=== PATIENT | male | born 1975 | race Caucasian/White ===

== ENCOUNTER → 2016-06-26 | Outpatient (CLI) | payer OTHER ==
[~2016-06-26] MED LIST: LORA-741 PO; MELO7.5T5 PO; VENL75CA73 PO
[2016-06-26 10:09] LABS: BASO % 0.2 %; BASO ABS # 0.02 K/uL (0-0.2); COMPLETE YES; EOS % 4.1 %; HEMATOCRIT 43.7 % (42-52); IG% 0.4 %; LYMPH % 23.1 %; LYMPH ABS # 2.41 K/uL (1.2-3.4); MEAN CELL VOLUME 85.2 fL (80-100); MEAN CORPUSCULAR HEMOGLOBIN 28.5 pg (25-34); MEAN CORPUSCULAR HGB CONC 33.4 g/dl (32-36); MEAN PLATELET VOLUME 9.2 fL (7.4-10.4); MONO % 8.1 %; NEUT % 64.1 %; PLATELET COUNT 346 K/uL (130-400); RED BLOOD COUNT 5.13 M/uL (4.7-6.1); WHITE BLOOD COUNT 10.44 K/uL (4.8-10.8)
[2016-06-26 12:49] LABS: ALT/SGPT 43 U/L (12-78); AST/SGOT 23 U/L (15-37); BLOOD UREA NITROGEN 13 mg/dl (7-18); BUN/CREATININE RATIO 14.2 (10-20); CARBON DIOXIDE 27 mmol/L (21-32); CHLORIDE 103 mmol/L (98-107); CHOLESTEROL 212 mg/dl (0-200); CREATININE 0.89 mg/dl (0.60-1.40); GLUCOSE 143 mg/dl (70-99); POTASSIUM 4.1 mmol/L (3.5-5.1); SODIUM 138 mmol/L (136-145); TRIGLYCERIDES 121 mg/dl (0-150); VERY LOW DENSITY LIPOPROT CALC 24 mg/dl
[2016-06-26 12:53] LABS: CALCIUM 9.4 mg/dl (8.5-10.1)
[2016-06-26 12:59] LABS: ALB/GLOB RATIO 0.9 (0.9-2); ALKALINE PHOSPHATASE 99 U/L (45-117); CHOLESTEROL/HDL RATIO 4.3; HDL CHOLESTEROL 49 mg/dl; LDL CHOLESTEROL CALCULATED 139 mg/dl
== END | disposition home or self-care (01) ==
LOC: C.LAB1850 09:00
PROVIDERS: ATTEND Internal Medicine Geriatric Medicine
DX: F41.8 Other specified anxiety disorders (principal); M19.90 Unspecified osteoarthritis, unspecified site; K76.0 Fatty (change of) liver, not elsewhere classified; M45.9 Ankylosing spondylitis of unspecified sites in spine; K62.5 Hemorrhage of anus and rectum; K51.90 Ulcerative colitis, unspecified, without complications

== ENCOUNTER → 2017-03-14 | Outpatient (CLI) | payer OTHER ==
--- NOTE | 2017-03-16 14:30 | POLYSOMNOGRAPH REPORT ---
CLINICAL DATA: A 41-year-old male with BMI of 39.[address] Rajeev Ames with chronic sleep disturbance for at least 10-15 years. He awakens with fatigue and daytime somnolence. He snores loudly and awakens due to choking. On the evening of 03/14/2017, a home sleep apnea test was performed using a [employer]Keeper type 3 monitor. RECORDING RESULTS: Total recording time was 10 hours. The patient's monitoring time and estimated sleep time was 7.3 hours. RESPIRATORY DATA: Severe sleep apnea was documented. The OLIVE was 53.4. There were 280 obstructive and 2 mixed apneic episodes. There were 108 hypopneic episodes. The longest respiratory event was 60 seconds. OXIMETRY DATA: Nocturnal hypoxemia was seen. Oxygen cain was 64%. Mean saturation was 88%. Time below 89% was 172 minutes. HEART RATE DATA: Heart rates ranged from 68-84 beats per minute. SNORING DATA: Loud snoring events recorded throughout the night. IMPRESSION: Very severe sleep apnea/hypopnea with an OLIVE of 53.4 with severe nocturnal hypoxemia. RECOMMENDATIONS: The patient would benefit from a repeat sleep study with CPAP, use of auto CPAP, or sleep medicine consultation. Clinical correlation is needed. [facility]
== END | disposition home or self-care (01) ==
LOC: C.NEUR 08:14
PROVIDERS: ATTEND Internal Medicine Geriatric Medicine
DX: G47.30 Sleep apnea, unspecified (principal)

== ENCOUNTER → 2017-04-19 | Outpatient (CLI) | payer OTHER ==
[2017-04-19 09:31] LABS: BLOOD UREA NITROGEN 16 mg/dl (7-18); CALCIUM 9.1 mg/dl (8.5-10.1); CARBON DIOXIDE 27 mmol/L (21-32); CREATININE 0.89 mg/dl (0.60-1.40); GLUCOSE 140 mg/dl (70-99); POTASSIUM 4.2 mmol/L (3.5-5.1); SODIUM 135 mmol/L (136-145)
== END | disposition home or self-care (01) ==
LOC: C.LAB1850 08:07
PROVIDERS: ATTEND Internal Medicine Geriatric Medicine
DX: I10 Essential (primary) hypertension (principal)

== ENCOUNTER → 2017-05-22 | Outpatient (CLI) | payer OTHER ==
--- NOTE | 2017-05-25 16:26 | POLYSOMNOGRAPH REPORT ---
CLINICAL DATA: A 42-year-old male with BMI of 39.[address] Rajeev Ames for CPAP titration study. He had a home sleep apnea test on February, which showed severe sleep apnea with an OLIVE of 53.4. SLEEP ARCHITECTURE: Total sleep period was 448.5 minutes. Total sleep time was 350.5 minutes divided between 327 minutes of non-REM sleep and 23.5 minutes of REM sleep. Sleep onset latency was 17 minutes. REM latency was delayed at 294 minutes. Sleep efficiency was 75%. Wake after sleep onset was 98 minutes. Sleep consisted of stage N1 11%, stage N2 47%, stage N3 35%, and REM 7%. AROUSAL DATA: Forty five arousals were recorded for an index of 8 per hour. PERIODIC LIMB MOVEMENT DATA: Eighty five limb movements during sleep were noted for an index of 14.6 per hour with arousal index of 4.5 per hour. RESPIRATORY DATA: The AHI was 11.8. There were 5 central and 1 obstructive apneic episodes. The longest duration of apnea was 18.3 seconds. There were 63 hypopneic episodes with a mean duration of 21 seconds. OXIMETRY DATA: Nocturnal hypoxemia was seen. Oxygen cain was 82% during non-REM sleep and mean saturation was 93%. Time below 88% was 13 minutes. ECHOCARDIOGRAM: Heart rate ranged from 71-98 beats per minute. No arrhythmias were noted. 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 CPAP was started using a medium Mariano and Paykel Simplus mask. The patient was titrated incrementally up to his final pressure setting of CPAP 10 cm water pressure, C-Flex setting #2. At this final pressure setting, the patient slept for 109 minutes with an AHI of 1.6. IMPRESSION: Severe sleep apnea/hypopnea corrected with CPAP 10 cm water pressure, C-flex #2, medium Mariano and Paykel Simplus mask. RECOMMENDATIONS: The patient should be started on the above noted treatment regimen and seen back in followup within 90 days to document efficacy and compliance. [facility]
== END | disposition home or self-care (01) ==
LOC: C.NEUR 20:00
PROVIDERS: ATTEND Internal Medicine Geriatric Medicine
DX: G47.33 Obstructive sleep apnea (adult) (pediatric) (principal)

== ENCOUNTER → 2017-07-12 | Outpatient (CLI) | payer OTHER ==
[~2017-07-12] VITALS: Ht 181.6 cm; Wt 130.4 kg
[2017-07-12 09:37] VITALS: BP 117/75; PULSE 99; Ht 181.6 cm; Wt 130.4 kg
== END | disposition home or self-care (01) ==
LOC: C.NEUR 09:12
PROVIDERS: ATTEND Internal Medicine Pulmonary Disease
DX: G47.33 Obstructive sleep apnea (adult) (pediatric) (principal)

== ENCOUNTER 2020-01-02 21:52 | Observation (INO) ==
[2020-01-02] MEDS ORDERED: ONDANSETRON INJ 2 MG/ML 2 ML VIAL IV STA (22:27)
[2020-01-02] MEDS ORDERED: SODIUM CHLORIDE 0.9% 1000ML 1,000 ML IV SCH (22:30)
--- NOTE | 2020-01-02 22:38 | Emergency Department Note ---
History of Present Illness General Chief complaint: Abdominal Pain Stated complaint: AB PAIN Time Seen by Provider: 01/02/20 22:00 History of Present Illness Maximum Pain Intensity: 0 This 44-year-old presents to the ER complaining of nausea, vomiting and abdominal pain Location: Abdomen Quality: Painful Severity: Moderate Duration: This afternoon Timing: Started this afternoon Context: Patient was concerned and came in Modifying factors: better with going the bathroom; worse with activity Patient states the pain came on strong and he vomited. He tried to go the bathroom got lightheaded and nearly passed out. Patient did have a bowel movement and feels slightly better now. He has a history of UC. Patient denies chest pain, dyspnea, fevers, flulike illness. No prior abdominal surgeries. Colonoscopy 5 years ago showed UC and diverticulosis. Home Medications Home Medications Medication Instructions Recorded Confirmed Type miscellaneous medical supply #1 ea 10/07/18 09/26/19 Rx blood sugar diagnostic #100 ea 10/21/18 09/26/19 Rx blood-glucose meter #1 ea 10/21/18 09/26/19 Rx lancets #100 ea 10/21/18 09/26/19 Rx venlafaxine 75 mg capsule,extended 225 mg PO DAILY #90 cap 06/04/19 01/02/20 Rx release 24 hr glipizide 5 mg tablet 5 mg PO DAILY #30 tab 08/14/19 01/02/20 Rx lisinopril 10 mg tablet 10 mg PO DAILY #30 tab 08/14/19 01/02/20 Rx meloxicam 7.5 mg tablet 7.5 mg PO DAILY PRN #90 tab 10/27/19 01/02/20 Rx metformin 1,000 mg tablet 1,000 mg PO BID #180 tab 11/17/19 01/02/20 Rx Allergies Allergy/AdvReac Type Severity Reaction Status Date / Time No Known Allergies Allergy Verified 01/02/20 22:33 Past Med/Surg History Medical History Ankylosing spondylitis Diabetes mellitus, type II Generalized anxiety disorder Hypertension Obstructive sleep apnea Polysomnography (03/15) with OLIVE 53.4 with nocturnal hypoxemia. 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 Feels Safe at Home: Yes Childhood Exposure to Second-Hand Smoke: Yes Dental Care, Regularly: No Physical Activity Frequency: 1-2 Times per Week Seatbelt Use: always Sunscreen Use: Yes Review of Systems A total of 10 systems reviewed and were otherwise negative Physical Exam Vital Signs Vital Signs - 24 hr 01/02/20 22:01 01/02/20 23:00 01/02/20 23:30 Temperature 36.7 C Temperature Source Oral Pulse Rate 106 H 110 H 96 H Pulse Rate from SpO2 Sensor 111 H 96 H Respiratory Rate 20 20 27 H Respiratory Effort / Characteristics Non-Labored Spontaneous Respiratory Depth Normal Blood Pressure 100/75 Blood Pressure Mean 83 Blood Pressure Position Lying Pulse Oximetry 96 96 95 Oxygen Delivery Method Room Air Sepsis Recent Fever Within 48 Hours No Sepsis New/Unexplained Change in Mental Status No Sepsis Action Taken by Nursing No Action Required 01/02/20 23:58 01/03/20 00:00 01/03/20 00:22 Temperature Temperature Source Pulse Rate 105 H 105 H Pulse Rate from SpO2 Sensor 106 H 105 H Respiratory Rate 30 H 33 H Respiratory Effort / Characteristics Respiratory Depth Blood Pressure 106/68 104/67 Blood Pressure Mean 76 82 Blood Pressure Position Pulse Oximetry 94 94 Oxygen Delivery Method Room Air Sepsis Recent Fever Within 48 Hours Sepsis New/Unexplained Change in Mental Status Sepsis Action Taken by Nursing 01/03/20 00:30 01/03/20 01:00 01/03/20 01:30 Temperature Temperature Source Pulse Rate 113 H 105 H Pulse Rate from SpO2 Sensor 113 H 113 H 105 H Respiratory Rate 35 H 22 Respiratory Effort / Characteristics Respiratory Depth Blood Pressure 108/73 98/71 L 118/70 Blood Pressure Mean 84 76 80 Blood Pressure Position Pulse Oximetry 95 94 96 Oxygen Delivery Method Sepsis Recent Fever Within 48 Hours Sepsis New/Unexplained Change in Mental Status Sepsis Action Taken by Nursing 01/03/20 02:00 Temperature Temperature Source Pulse Rate 100 H Pulse Rate from SpO2 Sensor 100 H Respiratory Rate 22 Respiratory Effort / Characteristics Respiratory Depth Blood Pressure 103/56 L Blood Pressure Mean 62 Blood Pressure Position Pulse Oximetry 95 Oxygen Delivery Method Sepsis Recent Fever Within 48 Hours Sepsis New/Unexplained Change in Mental Status Sepsis Action Taken by Nursing VITALS: Vitals are noted on the nurse's note and reviewed by myself. Vital signs stable. GENERAL: White male who appears fatigued, in no acute distress, nondiaphoretic, well-developed well-nourished. SKIN: Capillary reflex less than 2 seconds. HEENT: Normocephalic. PERRLA. EOMI. Nares patent. Mucous membranes moist. Neck is supple without nuchal rigidity. HEART: Regular rate and rhythm LUNGS: Clear to auscultation bilaterally without wheezes, rales or rhonchi. No retractions or accessory muscle use. ABDOMEN: Positive bowel sounds x 4. Normal tympanic percussion. Soft, protuberant, obese, tender to palpation left lower quadrant, without masses or organomegaly. Navarro sign negative. No guarding or rebound tenderness. No CVA tenderness MUSCULOSKELETAL: No gross musculoskeletal defects. NEURO: Patient was alert and oriented to person place and time. No focal neurological deficits. Course Administered Medications Discontinued Medications Sodium Chloride (Nss 1000ml) 1,000 mls @ 999 mls/hr IV .Q1H1M JAKE Stop: 01/02/20 23:30 Last Infusion: 01/02/20 23:35 Dose: 0 mls/hr Documented by: [id number] Admin: 01/02/20 22:34 Dose: 999 mls/hr Documented by: [id number] Piperacillin Sod/Tazobactam Sod (Zosyn) 4.5 gm in 120 mls @ 240 mls/hr IV NOW ONE Stop: 01/02/20 23:28 Last Infusion: 01/03/20 00:25 Dose: 0 mls/hr Documented by: [id number] Admin: 01/02/20 23:55 Dose: 240 mls/hr Documented by: [id number] Sodium Chloride (Nss 1000ml) 1,000 mls @ 999 mls/hr IV .Q1H1M ONE Stop: 01/03/20 01:02 Last Infusion: 01/03/20 01:34 Dose: 0 mls/hr Documented by: [id number] Admin: 01/03/20 00:15 Dose: 999 mls/hr Documented by: [id number] Sodium Chloride (Nss 1000ml) 1,000 mls @ 999 mls/hr IV .Q1H1M ONE Stop: 01/03/20 01:03 Last Infusion: 01/03/20 02:14 Dose: 0 mls/hr Documented by: [id number] Admin: 01/03/20 01:01 Dose: 999 mls/hr Documented by: [id number] Insulin Human Regular (Novolin-R Insulin Per Unit Charge) 10 units IV NOW STA Stop: 01/03/20 00:01 Last Admin: 01/03/20 00:13 Dose: 10 units Documented by: [id number] Cosigned by: [id number] Ioversol (Ioversol 100ml) 93 ml IV ONCE ONE Stop: 01/02/20 23:29 Last Admin: 01/02/20 23:29 Dose: 1 ml Documented by: [id number] Ondansetron HCl (Ondansetron Inj 2 Mg/Ml 2 Ml Vial) 4 mg IV NOW STA Stop: 01/02/20 22:28 Last Admin: 01/02/20 22:35 Dose: 4 mg Documented by: [id number] Medical Decision Making Medical Records Attestation: I reviewed the patient's medical records. Home Medications Current Medication List: was personally reviewed by me Laboratory Data Attestation: I reviewed the patient's lab results. Result diagrams: 01/02/20 21:30 01/02/20 21:30 Lab Results 01/02/20 01/02/20 01/02/20 Range/Units 21:30 21:30 23:18 WBC 32.27 H* (4.8-10.8) K/uL RBC 6.29 H (4.7-6.1) M/uL Hgb 18.3 H (14.0-18.0) g/dL Hct 55.1 H (42-52) % MCV 87.6 (80-100) fL MCH 29.1 (25-34) pg MCHC 33.2 (32-36) g/dL RDW Std Deviation 41.9 (36.4-46.3) fL RDW Coeff of Damaris 13.1 (11.5-14.5) % Plt Count 462 H (130-400) K/uL MPV 10.3 (7.4-10.4) fL Immature Gran % (Auto) 1.5 % Neut % (Auto) 86.0 % Lymph % (Auto) 7.1 % [place] % (Auto) 5.1 % Eos % (Auto) 0.1 % Baso % (Auto) 0.2 % Neut # (Auto) 27.79 H (1.4-6.5) K/uL Lymph # (Auto) 2.28 (1.2-3.4) K/uL [place] # (Auto) 1.65 H (0.11-0.59) K/uL Eos # (Auto) 0.02 (0-0.5) K/uL Baso # (Auto) 0.05 (0-0.2) K/uL Immature Gran # (Auto) 0.48 H (0.00-0.02) K/uL RBC Morphology Unremarkable VBG pH (7.36-7.41) VBG pCO2 (38-50) mmHg VBG pO2 mmHg VBG HCO3 mmol/L VBG O2 Saturation % VBG Base Excess mEq/L Sodium 133 L (136-145) mmol/L Potassium 4.7 (3.5-5.1) mmol/L Chloride 94 L (98-107) mmol/L Carbon Dioxide 22 (21-32) mmol/L Anion Gap 17.0 H (3-11) BUN 20 H (7-18) mg/dl Creatinine 1.76 H (0.6-1.4) mg/dl Est Cr Clr Drug Dosing 66.8 ml/min Est GFR ( Amer) 52.6 Est GFR (Non-Af Amer) 45.4 BUN/Creatinine Ratio 11.2 (10-20) Glucose 348 H* (70-99) mg/dl POC Glucose (70-99) mg/dl Lactate 4.7 H* (0.4-2.0) mmol/L Calcium 9.4 (8.5-10.1) mg/dl Total Bilirubin 0.4 (0.2-1) mg/dl AST 64 H (15-37) U/L ALT 138 H (12-78) U/L Alkaline Phosphatase 104 (45-117) U/L Troponin I < 0.015 (0-0.045) ng/ml Total Protein 8.5 H (6.4-8.2) gm/dl Albumin 3.9 (3.4-5.0) gm/dl Globulin 4.6 H (2.5-4.0) gm/dl Albumin/Globulin Ratio 0.9 (0.9-2) Lipase 104 (73-393) U/L Beta-Hydroxybutyric Acd (0.2-2.81) mg/dl Urine Color Urine Appearance (Clear) Urine pH (4.5-7.5) Ur Specific [place] (1.000-1.030) Urine Protein (Negative) Urine Glucose (UA) (Negative) Urine Ketones (Negative) Urine Blood (Negative) Urine Nitrite (Negative) Urine Bilirubin (Negative) Urine Urobilinogen (Negative) Ur Leukocyte Esterase (Negative) Urine WBC (Auto) (0-5) /hpf Urine RBC (Auto) (0-4) /hpf U Hyaline Cast (Auto) (0-5) /lpf U Epithel Cells (Auto) (0-5) /lpf Urine Bacteria (Auto) (Negative) Calcium Oxalate Crystal (None Prsent) Granular Casts (0) /lpf 01/02/20 01/03/20 01/03/20 Range/Units 23:18 00:11 00:12 WBC (4.8-10.8) K/uL RBC (4.7-6.1) M/uL Hgb (14.0-18.0) g/dL Hct (42-52) % MCV (80-100) fL MCH (25-34) pg MCHC (32-36) g/dL RDW Std Deviation (36.4-46.3) fL RDW Coeff of Damaris (11.5-14.5) % Plt Count (130-400) K/uL MPV (7.4-10.4) fL Immature Gran % (Auto) % Neut % (Auto) % Lymph % (Auto) % [place] % (Auto) % Eos % (Auto) % Baso % (Auto) % Neut # (Auto) (1.4-6.5) K/uL Lymph # (Auto) (1.2-3.4) K/uL [place] # (Auto) (0.11-0.59) K/uL Eos # (Auto) (0-0.5) K/uL Baso # (Auto) (0-0.2) K/uL Immature Gran # (Auto) (0.00-0.02) K/uL RBC Morphology VBG pH 7.26 L (7.36-7.41) VBG pCO2 51 H (38-50) mmHg VBG pO2 28 mmHg VBG HCO3 23 mmol/L VBG O2 Saturation < 60.0 % VBG Base Excess -5.2 mEq/L Sodium (136-145) mmol/L Potassium (3.5-5.1) mmol/L Chloride (98-107) mmol/L Carbon Dioxide (21-32) mmol/L Anion Gap (3-11) BUN (7-18) mg/dl Creatinine (0.6-1.4) mg/dl Est Cr Clr Drug Dosing ml/min Est GFR ( Amer) Est GFR (Non-Af Amer) BUN/Creatinine Ratio (10-20) Glucose (70-99) mg/dl POC Glucose 382 H* 416 H* (70-99) mg/dl Lactate (0.4-2.0) mmol/L Calcium (8.5-10.1) mg/dl Total Bilirubin (0.2-1) mg/dl AST (15-37) U/L ALT (12-78) U/L Alkaline Phosphatase (45-117) U/L Troponin I (0-0.045) ng/ml Total Protein (6.4-8.2) gm/dl Albumin (3.4-5.0) gm/dl Globulin (2.5-4.0) gm/dl Albumin/Globulin Ratio (0.9-2) Lipase (73-393) U/L Beta-Hydroxybutyric Acd (0.2-2.81) mg/dl Urine Color Urine Appearance (Clear) Urine pH (4.5-7.5) Ur Specific [place] (1.000-1.030) Urine Protein (Negative) Urine Glucose (UA) (Negative) Urine Ketones (Negative) Urine Blood (Negative) Urine Nitrite (Negative) Urine Bilirubin (Negative) Urine Urobilinogen (Negative) Ur Leukocyte Esterase (Negative) Urine WBC (Auto) (0-5) /hpf Urine RBC (Auto) (0-4) /hpf U Hyaline Cast (Auto) (0-5) /lpf U Epithel Cells (Auto) (0-5) /lpf Urine Bacteria (Auto) (Negative) Calcium Oxalate Crystal (None Prsent) Granular Casts (0) /lpf 01/03/20 01/03/20 01/03/20 Range/Units 00:15 01:20 01:30 WBC (4.8-10.8) K/uL RBC (4.7-6.1) M/uL Hgb (14.0-18.0) g/dL Hct (42-52) % MCV (80-100) fL MCH (25-34) pg MCHC (32-36) g/dL RDW Std Deviation (36.4-46.3) fL RDW Coeff of Damaris (11.5-14.5) % Plt Count (130-400) K/uL MPV (7.4-10.4) fL Immature Gran % (Auto) % Neut % (Auto) % Lymph % (Auto) % [place] % (Auto) % Eos % (Auto) % Baso % (Auto) % Neut # (Auto) (1.4-6.5) K/uL Lymph # (Auto) (1.2-3.4) K/uL [place] # (Auto) (0.11-0.59) K/uL Eos # (Auto) (0-0.5) K/uL Baso # (Auto) (0-0.2) K/uL Immature Gran # (Auto) (0.00-0.02) K/uL RBC Morphology VBG pH (7.36-7.41) VBG pCO2 (38-50) mmHg VBG pO2 mmHg VBG HCO3 mmol/L VBG O2 Saturation % VBG Base Excess mEq/L Sodium (136-145) mmol/L Potassium (3.5-5.1) mmol/L Chloride (98-107) mmol/L Carbon Dioxide (21-32) mmol/L Anion Gap (3-11) BUN (7-18) mg/dl Creatinine (0.6-1.4) mg/dl Est Cr Clr Drug Dosing ml/min Est GFR ( Amer) Est GFR (Non-Af Amer) BUN/Creatinine Ratio (10-20) Glucose (70-99) mg/dl POC Glucose 321 H* (70-99) mg/dl Lactate 4.3 H* (0.4-2.0) mmol/L Calcium (8.5-10.1) mg/dl Total Bilirubin (0.2-1) mg/dl AST (15-37) U/L ALT (12-78) U/L Alkaline Phosphatase (45-117) U/L Troponin I (0-0.045) ng/ml Total Protein (6.4-8.2) gm/dl Albumin (3.4-5.0) gm/dl Globulin (2.5-4.0) gm/dl Albumin/Globulin Ratio (0.9-2) Lipase (73-393) U/L Beta-Hydroxybutyric Acd (0.2-2.81) mg/dl Urine Color Dark Yellow Urine Appearance Cloudy A (Clear) Urine pH 5.0 (4.5-7.5) Ur Specific [place] > 1.045 H (1.000-1.030) Urine Protein 2+ H (Negative) Urine Glucose (UA) 3+ H (Negative) Urine Ketones 1+ H (Negative) Urine Blood Negative (Negative) Urine Nitrite Negative (Negative) Urine Bilirubin Negative (Negative) Urine Urobilinogen Negative (Negative) Ur Leukocyte Esterase Negative (Negative) Urine WBC (Auto) 1-5 (0-5) /hpf Urine RBC (Auto) 10-30 H (0-4) /hpf U Hyaline Cast (Auto) >30 H (0-5) /lpf U Epithel Cells (Auto) >30 H (0-5) /lpf Urine Bacteria (Auto) Negative (Negative) Calcium Oxalate Crystal Present A (None Prsent) Granular Casts 1-5 H (0) /lpf Imaging Data Attestation: I personally reviewed and interpreted this imaging study as follows: MDM Narrative Prior records/ancillary studies reviewed. Triage Nursing notes reviewed. Additional history obtained from family. The patient's history was concerning for abdominal pain. Differential diagnosis: Etiologies such as appendicitis, diverticulitis, PUD, biliary pathology, UTI, pancreatitis, obstruction, mesenteric ischemia, aortic pathology, infections, inflammatory bowel disease, renal colic, as well as others were entertained. Physical examination findings: As above. ER treatment provided: An order was placed for continuous cardiac monitoring. The monitor shows a rate of 60-1 10 with a sinus rhythm. IV fluids, Zofran, Zosyn On reassessment the patient felt better. Diagnostics interpreted by me: ECG: Ordered for weakness EKG: Normal sinus, normal normals, no acute ST-T wave changes. Impression sinus tachycardia with interpreted myself I think arrhythmia is unlikely. EKG shows normal sinus rhythm with no interval abnormalities such as QT prolongation or WPW. There are no findings to suggest Brugada syndrome. Cardiac monitoring in the emergency department reveals no tachycardic or bradycardic dysrhythmia. Hypertrophic cardiomyopathy was considered but there are no clear historical elements pointing toward this. EKG is not suggestive. The QRS voltage is not extremely large and there are no suggestive Q waves. The labs revealed leukocytosis and blood cultures and lactic were ordered Hyperglycemia with a gap and a VBG was ordered Elevated creatinine Negative troponin pH was reviewed. Lactic acid elevated. Repeat was ordered. Imaging studies: Chest x-ray with no acute consolidation, pneumothorax or free air per my interpretation CT ABDOMEN & PELVIS With Contrast: Direct comparison is made to a prior study of January 06, 2015. The liver is low in attenuation suggesting fatty infiltration. Spleen pancreas and gallbladder appear normal. Stomach appears normal. Segments of distal small bowel appear mildly thickened but without pneumatosis or obstruction. There is colonic diverticulosis without diverticulitis. The appendix appears normal. Adrenals kidneys ureters and bladder appear normal. Prostate appears normal. Vascular structures appear normal. There is no free peritoneal air. There is free peritoneal fluid with collections adjacent to the liver spleen and in the deep pelvis. There is haziness in the central small bowel mesenteric fat. Impression: Small bowel thickening and peroneal fluid with haziness in the small bowel mesenteric fat likely related to enteritis. Radiologist: Bart Casillas MD Consultation: A consultation was placed with Dr. Chacon. The case was discussed and diagnostics were reviewed. The patient was evaluated in the ER for further treatment. Exam and history seem consistent with DKA. Patient was hydrated as above. He was given insulin. CAT scan was reviewed. He was feeling better. Medicine was consulted. He will be evaluated for admission. By the evaluation outlined above emergent etiologies such as appendicitis, diverticulitis, PUD, biliary pathology, pancreatitis, obstruction, mesenteric ischemia, aortic pathology, renal colic, as well as others were deemed relatively unlikely. The pt informed about the findings as listed above. All questions were answered and pleased with the treatment. The chart was completed utilizing Dragon Speech voice recognition software. Grammatical errors, random word insertions, pronoun errors, and incomplete sentences are an occassional consequence of this system due to software limitations, ambient noise, and hardware issues. Any formal questions or concerns about the content, text, or information contained within the body of this dictation should be directly addressed to the physician assistant professor of business for clarification. Impression & Plan DKA (diabetic ketoacidoses), Abdominal pain Discharge Plan Visit Data Chief Complaint: Abdominal Pain Stated Complaint: AB PAIN ED Provider: Vasquez Rosario ED Midlevel Provider: Yamel Ospina Discharge Problem: DKA (diabetic ketoacidoses), Abdominal pain Patient Disposition: Admitted As Inpatient Condition: Fair Forms Stand Alone Forms: Moni Prescriptions Prescriptions: No Action (DME) CPAP Supplies Misc See Dose Instructions .ROUTE .MEDSUPPLY Qty: 1 RF: 0 (DME) Accu-Chek Irma Plus test strp strip See Dose Instructions .ROUTE .MEDSUPPLY Qty: 100 RF: 0 (DME) blood-glucose meter [Accu-Chek Irma Plus Meter] misc See Dose Instructions .ROUTE .MEDSUPPLY Qty: 1 RF: 0 (DME) lancets [Accu-Chek Fastclix Lancet Drum] misc See Dose Instructions .ROUTE .MEDSUPPLY Qty: 100 RF: 0 venlafaxine 75 mg capsule,extended release 24hr 225 mg PO DAILY Qty: 90 RF: 0 glipizide 5 mg tablet 5 mg PO DAILY Qty: 30 RF: 5 lisinopril 10 mg tablet 10 mg PO DAILY Qty: 30 RF: 5 meloxicam 7.5 mg tablet 7.5 mg PO DAILY PRN (Reason: pain) Qty: 90 RF: 1 metformin 1,000 mg tablet 1,000 mg PO BID Qty: 180 RF: 1 Referrals Referrals: Portia Mosley MD [Primary Care Provider] - Discharge Problem: DKA (diabetic ketoacidoses) Qualifiers: Diabetes mellitus type: type 2 Diabetes mellitus complication detail: without coma Qualified Code(s): E11.10 - Type 2 diabetes mellitus with ketoacidosis without coma
[2020-01-02 22:42] LABS: Hematocrit (blood only) 55.1 % (42-52); Hemoglobin 18.3 g/dL (14.0-18.0); Mean Corpuscular Hemoglobin 29.1 pg (25-34); Mean Corpuscular Hgb Conc 33.2 g/dL (32-36); Mean Corpuscular Volume 87.6 fL (80-100); Mean Platelet Volume 10.3 fL (7.4-10.4); Platelet Count 462 K/uL (130-400); RDW Coefficient of Variation 13.1 % (11.5-14.5); RDW Standard Deviation 41.9 fL (36.4-46.3); Red Blood Count 6.29 M/uL (4.7-6.1); White Blood Count 32.27 K/uL (4.8-10.8)
[2020-01-02 22:51] LABS: Alanine Aminotransferase 138 U/L (12-78); Albumin Globulin Ratio 0.9 (0.9-2); Albumin Level 3.9 gm/dl (3.4-5.0); Alkaline Phosphatase 104 U/L (45-117); Aspartate Aminotransferase 64 U/L (15-37); BUN Creatinine Ratio 11.2 (10-20); Bilirubin,Total 0.4 mg/dl (0.2-1); Blood Urea Nitrogen 20 mg/dl (7-18); Calcium 9.4 mg/dl (8.5-10.1); Carbon Dioxide 22 mmol/L (21-32); Chloride 94 mmol/L (98-107); Creatinine Clr Calc Pharmacy 66.8 ml/min; Est GFR (African American) 52.6; Est GFR (Non-African American) 45.4; Globulin 4.6 gm/dl (2.5-4.0); Glucose 348 mg/dl (70-99); Lipase 104 U/L (73-393); Potassium 4.7 mmol/L (3.5-5.1); Sodium 133 mmol/L (136-145); Total Protein 8.5 gm/dl (6.4-8.2); Troponin I < 0.015 ng/ml (0-0.045)
[2020-01-02] MEDS ORDERED: PIPERACILLIN/TAZOBACTAM 4.5 GM/120 ML BAG IV ONE (22:59)
[2020-01-02] MEDS ORDERED: PIPERACILL/TAZOBAC CONSULT ACTIVE PRN (22:59)
[2020-01-02] MEDS ORDERED: IOVERSOL 100ml IV ONE (23:28)
[2020-01-02 23:37] LABS: Base Excess VBG -5.2 mEq/L; HCO3 VBG 23 mmol/L; PCO2 VBG 51 mmHg (38-50); PO2 VBG 28 mmHg; pH VBG 7.26 (7.36-7.41)
[2020-01-02 23:48] LABS: Basophils # (auto) 0.05 K/uL (0-0.2); Basophils % (auto) 0.2 %; Eosinophils # (auto) 0.02 K/uL (0-0.5); Eosinophils % (auto) 0.1 %; Immature Granulocytes # (auto) 0.48 K/uL (0.00-0.02); Immature Granulocytes % (auto) 1.5 %; Lymphocytes # (auto) 2.28 K/uL (1.2-3.4); Lymphocytes % (auto) 7.1 %; Monocytes # (auto) 1.65 K/uL (0.11-0.59); Monocytes % (auto) 5.1 %; Neutrophils # (auto) 27.79 K/uL (1.4-6.5); RBC Morphology Unremarkable
[2020-01-02 23:48] LABS: Oxygen Saturation VBG < 60.0 %
[2020-01-03] MEDS ORDERED: NovoLIN-R INSULIN PER UNIT CHARGE IV STA
[2020-01-03] MEDS ORDERED: SODIUM CHLORIDE 0.9% 1000ML 1,000 ML IV ONE ×2 (00:02→00:03)
[2020-01-03 01:06] LABS: Appearance Urine Cloudy (Clear); Bacteria Urine Automated Negative (Negative); Bilirubin Urine Negative (Negative); Blood Urine Negative (Negative); Color Urine Dark Yellow; Epithelial Cell Urine Auto >30 /lpf (0-5); Glucose Urine UA 3+ (Negative); Ketones Urine 1+ (Negative); Leukocyte Esterase Urine Negative (Negative); Nitrite Urine Negative (Negative); Protein Urine 2+ (Negative); Specific Gravity Urine > 1.045 (1.000-1.030); Urobilinogen Urine Negative (Negative)
[2020-01-03 01:28] LABS: Calcium Oxalate Crystals Urine Present (None Prsent); Cast Urine Automated >30 /lpf (0-5)
[2020-01-03] MEDS ORDERED: GLUCOSE 10 TABS/TUBE PO PRN (03:58)
[2020-01-03] MEDS ORDERED: SODIUM CHLORIDE 0.9% 1000ML 1,000 ML IV SCH (03:58)
[2020-01-03] MEDS ORDERED: GLUCOSE 40% GEL 15 GM TUBE PO PRN (03:58)
[2020-01-03] MEDS ORDERED: GLUCAGON FOR INJ 1 MG VIAL SQ PRN (03:58)
[2020-01-03] MEDS ORDERED: ACETAMINOPHEN 325 MG TAB PO PRN (03:58)
[2020-01-03] MEDS ORDERED: DEXTROSE 50% 50 ML SYRINGE IV PRN (03:58)
[2020-01-03] MEDS ORDERED: ONDANSETRON INJ 2 MG/ML 2 ML VIAL IV PRN (03:58)
[2020-01-03] MEDS ORDERED: CARBOHYDRATES FOR HYPOGLYCEMIA PO PRN (03:58)
[2020-01-03] MEDS ORDERED: INFLUENZA VIRUS QUAD VACCINE 0.5 ML SYR IM ONE (04:18)
[2020-01-03] MEDS ORDERED: PNEUMOCOCCAL POLYSACCHARIDES 25 MCG/0.5 ML VIAL/SYR IM ONE (04:18)
[2020-01-03] MEDS ORDERED: PNEUMOCOCCAL ADMINISTRATION CHARGE ONE (04:18)
[2020-01-03] MEDS ORDERED: INFLUENZA ADMINISTRATION CHARGE ONE (04:18)
[2020-01-03 04:56] LABS: Basophils # (auto) 0.03 K/uL (0-0.2); Basophils % (auto) 0.1 %; Eosinophils # (auto) 0.03 K/uL (0-0.5); Eosinophils % (auto) 0.1 %; Hematocrit (blood only) 44.5 % (42-52); Hemoglobin 15.2 g/dL (14.0-18.0); Immature Granulocytes # (auto) 0.23 K/uL (0.00-0.02); Lymphocytes # (auto) 2.28 K/uL (1.2-3.4); Lymphocytes % (auto) 9.8 %; Mean Corpuscular Hemoglobin 29.1 pg (25-34); Mean Corpuscular Hgb Conc 34.2 g/dL (32-36); Mean Corpuscular Volume 85.2 fL (80-100); Mean Platelet Volume 9.9 fL (7.4-10.4); Monocytes # (auto) 1.26 K/uL (0.11-0.59); Monocytes % (auto) 5.4 %; Neutrophils % (auto) 83.6 %; Platelet Count 375 K/uL (130-400); RDW Coefficient of Variation 13.1 % (11.5-14.5); RDW Standard Deviation 40.4 fL (36.4-46.3); Red Blood Count 5.22 M/uL (4.7-6.1); White Blood Count 23.33 K/uL (4.8-10.8)
[2020-01-03] MEDS ORDERED: PIPERACILLIN/TAZOBACTAM 4.5 GM in DEXTROSE 5% 100 ML IV SCH (05:00)
[2020-01-03] MEDS ORDERED: NSS + 20MEQ KCL 20 MEQ/1,000 ML BAG IV SCH (05:00)
--- NOTE | 2020-01-03 05:01 | History & Physical Report ---
Date of Service January 03, 2020 Assessment & Plan (1) Enteritis: Suspect patient may have some underlying diabetic gastroparesis. It is possible that he may have an element of toxin induced food poisoning associated with food intake from a local eatery. Or it may just be a food sensitivity. Patient is feeling somewhat improved after IV fluids as noted, and will be placed on a diabetic diet that he can begin at his convenience. He did receive a single dose of Zosyn from the ED. Present on Admission?: Yes (2) DKA (diabetic ketoacidoses): Received 3 L normal saline and 10 units of regular insulin IV in the ED. Give another 1 L normal saline IV now. Maintenance fluids of normal saline with potassium chloride 20 mEq at night 25 mils per hour. Check BMP every [address] Accu-Cheks before meals and at bedtime with NovoLog coverage per scale Patient meets minimal criteria for DKA, with an anion gap of 17 and mildly elevated lactic acid of 4.3. Lactic acidosis likely in part run whole day associated to underlying infection, and being on Metformin while having acute kidney injury Present on Admission?: Yes (3) Acute kidney injury: Secondary to prerenal state. Avoid nephrotoxins such as lisinopril and meloxicam for now. Present on Admission?: Yes (4) Ankylosing spondylitis: Hold meloxicam Present on Admission?: Yes (5) Ulcerative colitis: (6) Generalized anxiety disorder: Continue venlafaxine ER 225 mg daily Present on Admission?: Yes (7) Diabetes mellitus, type II: Hold glipizide and Metformin. Present on Admission?: Yes (8) Fatty liver: Likely secondary to combination of obesity, diabetes mellitus and presumptive hypercholesterolemia. Follow serial liver enzymes. Present on Admission?: Yes (9) Hypertension: Hold lisinopril due to acute kidney injury Present on Admission?: Yes (10) Obstructive sleep apnea: Does not report being on any sleep support at this time Present on Admission?: Yes Admission and Anticipated Discharge Date Admission Date: January 03, 2020 History of Present Illness Chief Complaint: The patient presents to the ED with complaint of nausea, vomiting and abdominal pain that began earlier in the day today. Primary Care Provider: Portia Mosley MD The patient is a 44 yo male with a PMH including ankylosing spondylitis, ulcerative colitis, generalized anxiety disorder, DM type II, HTN and ROSALIE. The patient developed acute onset of nausea, vomiting and abdominal pain earlier in the day today, that persisted into the evening, and thus presented to the ED for assessment. He does report eating out at a local eatery earlier in the day, but does not report anything abnormal about the food taste. He does report having similar instances in the past, but not anything to this extent as today. He does report feeling somewhat improved after receiving 3 L of normal saline in the ED, but still feels uneasiness in the stomach. Work-up in the emergency department included a CT scan of abdomen and pelvis, which was consistent with enteritis and also showed fatty liver. Laboratories included the following: WBC 32.27, hemoglobin 18.3, platelets 462, creatinine 1.76 with baseline 0.84, glucose 348, lactic acid 4.3, AST 64, ALT 138, and a hemolyzed beta hydroxybutyric acid. Allergies Allergy/AdvReac Type Severity Reaction Status Date / Time No Known Allergies Allergy Verified 01/02/20 22:33 Home Medications Home Medications Medication Instructions Recorded Confirmed Type miscellaneous medical supply #1 ea 10/07/18 09/26/19 Rx blood sugar diagnostic #100 ea 10/21/18 09/26/19 Rx blood-glucose meter #1 ea 10/21/18 09/26/19 Rx lancets #100 ea 10/21/18 09/26/19 Rx venlafaxine 75 mg capsule,extended 225 mg PO DAILY #90 cap 06/04/19 01/02/20 Rx release 24 hr glipizide 5 mg tablet 5 mg PO DAILY #30 tab 08/14/19 01/02/20 Rx lisinopril 10 mg tablet 10 mg PO DAILY #30 tab 08/14/19 01/02/20 Rx meloxicam 7.5 mg tablet 7.5 mg PO DAILY PRN #90 tab 10/27/19 01/02/20 Rx metformin 1,000 mg tablet 1,000 mg PO BID #180 tab 11/17/19 01/02/20 Rx Past Med/Surg History Medical History Ankylosing spondylitis Diabetes mellitus, type II Generalized anxiety disorder Hypertension Obstructive sleep apnea Polysomnography (03/15) with OLIVE 53.4 with nocturnal hypoxemia. Managed with CPAP 10 cm H2O Ulcerative colitis Surgical History H/O colonoscopy S/P wisdom tooth extraction Family History Aunt Breast cancer Grandfather (Maternal) Myocardial infarction Grandfather (Paternal) Myocardial infarction Denies family history of Colon cancer Ovarian cancer Prostate cancer Social History Smoking Status: Never smoker Hx Alcohol Use: Yes Alcohol type: beer Hx Substance Use: No Preferred Language: Estonian Communication Ability: Effective Control Operator Required: No Beliefs That Will Affect Care: None marital status: Single Current Living Situation: Parent and Family current occupational status: employed 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 Other Information That Helps Us Care for You: No Feels Safe at Home: Yes Safety Concerns: Feels Safe At This Time Childhood Exposure to Second-Hand Smoke: Yes Dental Care, Regularly: No Physical Activity Frequency: 1-2 Times per Week Seatbelt Use: always Sunscreen Use: Yes Assistive Devices: CPAP and Glasses Review of Systems Review of Systems: The patient denies chest pain, palpitations, shortness of breath, dyspnea on exertion, cough, lower extremity swelling, sore throat, fevers, chills, Blood in urine or stool, dysuria, urinary frequency or urgency, lightheadedness, dizziness, headache, memory loss, loss of consciousness, rash, abnormal bruising or bleeding, imbalance, focal or generalized weakness, numbness or tingling in arms or legs, generalized arthralgias or myalgias, back or neck pain, or night sweats. The review of systems is otherwise negative other than for that already noted above, and at least 10 systems have been reviewed. Physical Exam Physical Exam: The patient is awake, alert and oriented 3, well developed and well nourished, normocephalic and atraumatic, lying in bed and in no acute distress. HEENT--PERRL, EOMI, mucous membranes and oropharynx dry. Neck--supple. No JVD. No bruits. Thyroid normal, trachea midline, no adenopathy. Heart--normal S1 and S2. No murmurs, rubs or gallops. Lungs--clear bilaterally, no respiratory distress, no accessory muscle use. Abdomen--normal bowel sounds and soft. Nontender. Nondistended. Morbid obesity Extremities--no cyanosis or clubbing. No edema. There are good distal pulses b/l. Dermatologic--normal skin turgor, normal color, no abnormal lymph nodes, no rash. Neurologic--cranial nerves II through XII grossly intact. Rheumatologic--normal range of motion. Psychiatric--normal affect. Results & Data Results & Data ([facility]) Vital Signs (Past 12 Hours) Vital Signs Temp Pulse Pulse Resp BP BP Pulse Ox 01/03/20 03:59 99.3 F 103 H 20 163/91 H 93 01/03/20 03:41 106 H 18 105/60 93 01/03/20 02:30 104 H 20 120/66 95 01/03/20 02:00 100 H 22 103/56 L 95 01/03/20 01:30 105 H 22 118/70 96 01/03/20 01:00 98/71 L 94 01/03/20 00:30 113 H 35 H 108/73 95 01/03/20 00:00 105 H 33 H 104/67 94 01/02/20 23:58 105 H 30 H 106/68 94 01/02/20 23:30 96 H 27 H 95 01/02/20 23:00 110 H 20 96 01/02/20 22:01 98.1 F 106 H 20 100/75 96 Laboratory Results Laboratory Results WBC 32.27 K/uL (4.8-10.8) H* 01/02/20 21:30 RBC 6.29 M/uL (4.7-6.1) H 01/02/20 21:30 Hgb 18.3 g/dL (14.0-18.0) H 01/02/20 21:30 Hct 55.1 % (42-52) H 01/02/20 21:30 MCV 87.6 fL (80-100) 01/02/20 21:30 MCH 29.1 pg (25-34) 01/02/20 21:30 MCHC 33.2 g/dL (32-36) 01/02/20 21:30 RDW Std Deviation 41.9 fL (36.4-46.3) 01/02/20 21:30 RDW Coeff of Damaris 13.1 % (11.5-14.5) 01/02/20 21:30 Plt Count 462 K/uL (130-400) H 01/02/20 21: MPV 10.3 fL (7.4-10.4) 01/02/20 21:30 Immature Gran % (Auto) 1.5 % 01/02/20 21: Neut % (Auto) 86.0 % 01/02/20 21: Lymph % (Auto) 7.1 % 01/02/20 21:30 [place] % (Auto) 5.1 % 01/02/20 21:30 Eos % (Auto) 0.1 % 01/02/20 21:30 Baso % (Auto) 0.2 % 01/02/20 21: Neut # (Auto) 27.79 K/uL (1.4-6.5) H 01/02/20 21:30 Lymph # (Auto) 2.28 K/uL (1.2-3.4) 01/02/20 21:30 [place] # (Auto) 1.65 K/uL (0.11-0.59) H 01/02/20 21:30 Eos # (Auto) 0.02 K/uL (0-0.5) 01/02/20 21:30 Baso # (Auto) 0.05 K/uL (0-0.2) 01/02/20 21: Immature Gran # (Auto) 0.48 K/uL (0.00-0.02) H 01/02/20 21:30 RBC Morphology Unremarkable 01/02/20 21:30 VBG pH 7.26 (7.36-7.41) L 01/02/20 23:18 VBG pCO2 51 mmHg (38-50) H 01/02/20 23:18 VBG pO2 28 mmHg 01/02/20 23:18 VBG HCO3 23 mmol/L 01/02/20 23:18 VBG O2 Saturation < 60.0 % 01/02/20 23:18 VBG Base Excess -5.2 mEq/L 01/02/20 23:18 Sodium 133 mmol/L (136-145) L 01/02/20 21: Potassium 4.7 mmol/L (3.5-5.1) 01/02/20: Chloride 94 mmol/L (98-107) L 01/02/20 21:30 Carbon Dioxide 22 mmol/L (21-32) 01/02/20 21:30 Anion Gap 17.0 (3-11) H 01/02/20 21:30 BUN 20 mg/dl (7-18) H 01/02/20 21:30 Creatinine 1.76 mg/dl (0.6-1.4) H 01/02/20 21:30 Est Cr Clr Drug Dosing 66.8 ml/min 01/02/20 21:30 Est GFR ( Amer) 52.6 01/02/20 21:30 Est GFR (Non-Af Amer) 45.4 01/02/20 21:30 BUN/Creatinine Ratio 11.2 (10-20) 01/02/20 21:30 Glucose 348 mg/dl (70-99) H* 01/02/20 21:30 POC Glucose 285 mg/dl (70-99) H 01/03/20 03:37 Lactate 4.3 mmol/L (0.4-2.0) H* 01/03/20 01:20 Calcium 9.4 mg/dl (8.5-10.1) 01/02/20 21:30 Total Bilirubin 0.4 mg/dl (0.2-1) 01/02/20 21:30 AST 64 U/L (15-37) H 01/02/20 21:30 ALT 138 U/L (12-78) H 01/02/20 21:30 Alkaline Phosphatase 104 U/L (45-117) 01/02/20 21:30 Troponin I < 0.015 ng/ml (0-0.045) 01/02/20 21:30 Total Protein 8.5 gm/dl (6.4-8.2) H 01/02/20 21:30 Albumin 3.9 gm/dl (3.4-5.0) 01/02/20 21:30 Globulin 4.6 gm/dl (2.5-4.0) H 01/02/20 21:30 Albumin/Globulin Ratio 0.9 (0.9-2) 01/02/20 21:30 Lipase 104 U/L (73-393) 01/02/20 21:30 Beta-Hydroxybutyric Acd mg/dl (0.2-2.81) 01/02/20 21:30 Urine Color Dark Yellow 01/03/20 00:15 Urine Appearance Cloudy (Clear) A 01/03/20 00:15 Urine pH 5.0 (4.5-7.5) 01/03/20 00:15 Ur Specific [place] > 1.045 (1.000-1.030) H 01/03/20 00:15 Urine Protein 2+ (Negative) H 01/03/20 00:15 Urine Glucose (UA) 3+ (Negative) H 01/03/20 00:15 Urine Ketones 1+ (Negative) H 01/03/20 00:15 Urine Blood Negative (Negative) 01/03/20 00:15 Urine Nitrite Negative (Negative) 01/03/20 00:15 Urine Bilirubin Negative (Negative) 01/03/20 00:15 Urine Urobilinogen Negative (Negative) 01/03/20 00:15 Ur Leukocyte Esterase Negative (Negative) 01/03/20 00:15 Urine WBC (Auto) 1-5 /hpf (0-5) 01/03/20 00:15 Urine RBC (Auto) 10-30 /hpf (0-4) H 01/03/20 00:15 U Hyaline Cast (Auto) >30 /lpf (0-5) H 01/03/20 00:15 U Epithel Cells (Auto) >30 /lpf (0-5) H 01/03/20 00:15 Urine Bacteria (Auto) Negative (Negative) 01/03/20 00:15 Calcium Oxalate Crystal Present (None Prsent) A 01/03/20 00:15 Granular Casts 1-5 /lpf (0) H 01/03/20 00:15 Diagnostic Findings [facility] Patient: DANAY HAYWOOD (Male) : 71 Status: ER Date: 01/02/20 23:54 Room #: History: appen pres 93 ml lower abd pain hx ulcer cololits Slices: [phone] Priors: Tech: Geovanni Nagel @ [phone] Exams: CT ABDOMEN & PELVIS With Contrast Contrast: IV Amt: 93 ml optiray Accession Numbers: [id number] Preliminary Findings Only See Final Report For Complete Findings CT ABDOMEN & PELVIS With Contrast: Direct comparison is made to a prior study of January 06, 2015. The liver is low in attenuation suggesting fatty infiltration. Spleen pancreas and gallbladder appear normal. Stomach appears normal. Segments of distal small bowel appear mildly thickened but without pneumatosis or obstruction. There is colonic diverticulosis without diverticulitis. The appendix appears normal. Adrenals kidneys ureters and bladder appear normal. Prostate appears normal. Vascular structures appear normal. There is no free peritoneal air. There is free peritoneal fluid with collections adjacent to the liver spleen and in the deep pelvis. There is haziness in the central small bowel mesenteric fat. Impression: Small bowel thickening and peroneal fluid with haziness in the small bowel mesenteric fat likely related to enteritis. Radiologist: Bart Casillas MD Study ready at 00:01 and initial results transmitted at 00:08 *This report constitutes a preliminary interpretation only. Non-acute findings felt to be unrelated to the clinical presentation may not be discussed in this report. The study will be interpreted and a final report will be generated by the local Radiologist the following shift. To reach the hospital radiology department call [phone]. If a discrepancy is found between the preliminary and final interpretations of this study, please notify us via our Client Portal at [email or web address] under QA Exams.You can also fax this report with a description of the discrepancy, or include the final report, to our daytime fax number [phone].If faxing, please indicate the severity of discrepancy using one of the following categories: [ ] 1 - Agree/Informational [ ] 2 - Unlikely to Affect Management [ ] 3 - Possible Eventual Change of Management [ ] 4 - Probable Immediate Change of Management For all other patient related information, please fax us at [phone]. [id number] Code Status & VTE Plan Code Status Full code VTE Prophylaxis Plan VTE Prophylaxis will be ordered: Yes PG Care Time/CCT Total # of Minutes Spent Total Time Spent with Patient: Total time spent is greater than 50% in coordination of care (as documented) at patient's floor/unit and/or counseling patient: Coding Level of Care Code 42559 Initial Inpt Care Lvl 3 Diagnoses Enteritis K52.9 DKA (diabetic ketoacidoses) E11.10 Diabetes mellitus complication detail: without coma Diabetes mellitus type: type 2 Acute kidney injury N17.9 Ankylosing spondylitis M45.9 Ulcerative colitis K51.90 Generalized anxiety disorder F41.1 Diabetes mellitus, type II E11.9 Fatty liver K76.0 Hypertension I10 Obstructive sleep apnea G47.33 (1) DKA (diabetic ketoacidoses) Diabetes mellitus complication detail: without coma Diabetes mellitus type: type 2 Qualified Code(s): E11.10 - Type 2 diabetes mellitus with ketoacidosis without coma
[2020-01-03 05:17] LABS: BUN Creatinine Ratio 15.9 (10-20); Calcium 9.2 mg/dl (8.5-10.1); Creatinine Clr Calc Pharmacy 110.6 ml/min; Est GFR (African American) 85.3; Est GFR (Non-African American) 73.6
[2020-01-03] MEDS ORDERED: INSULIN HUMAN REGULAR PER UNIT 4 UNITS in SYRINGE 3.96 ML IV STA (05:37)
[2020-01-03 06:09] LABS: Estimated Average Glucose 237 mg/dl; Hemoglobin A1C 9.9 % (4.5-5.6)
--- NOTE | 2020-01-03 07:34 | CT Scan Report ---
CT abd pelvis IV con only CLINICAL HISTORY: Lower abdominal pain. History of ulcerative colitis. COMPARISON STUDY: 01/12/2015 TECHNIQUE: Patient was scanned in a dynamic helical fashion during intravenous administration of 93 c c of Optiray 320 A dose lowering technique was utilized adhering to the principles of ALARA. CT DOSE: 1686.21 mGy.cm FINDINGS: Lower chest: The heart is normal in size and configuration, without pericardial effusion. The lung ba ses and pleural spaces are clear. Liver: There is hepatic steatosis. No focal hepatic masses are visualized. Gallbladder: Unremarkable. Spleen: Normal in size and attenuation. Pancreas: Unremarkable. Adrenal glands: Unremarkable. Kidneys: There is symmetric renal cortical enhancement. The kidneys are normal in size without hydron ephrosis. Bowel: There are no transition zones indicate bowel obstruction. There is colonic diverticulosis. The re is no evidence of acute diverticulitis. The appendix appears normal. There is minimal small bowel wall thickening. Peritoneum: There is no free air. There is low volume ascites. There is central mesenteric edema. Vasculature: The abdominal aorta is normal in course and caliber. Adenopathy: None. Pelvic viscera: The bladder, and pelvic viscera are unremarkable. Skeletal structures: There is SI joint ankylosis consistent with sacroiliitis. IMPRESSION: 1. No evidence of bowel obstruction. No evidence of free air 2. Hepatic steatosis 3. Normal appendix 4. Infiltration of the central mesentery. Minimal small bowel wall thickening. Low volume ascites. Th e findings are consistent with a nonspecific mesenteritis or small bowel enteritis. Clinical follow-u p is advocated. 5. SI joint ankylosis. ACT 112: Negative or not required by law. Electronically signed by: Donavon Christopher M.D. 01/03/2020 7:33 AM
--- NOTE | 2020-01-03 07:51 | Hospitalist Progress Note ---
Date of Service January 03, 2020 Assessment & Plan (1) Enteritis: Suspect patient may have some underlying diabetic gastroparesis. It is possible that he may have an element of toxin induced food poisoning associated with food intake from a local eatery. Or it may just be a food sensitivity. Patient is feeling somewhat improved after IV fluids as noted, and will be placed on a diabetic diet that he can begin at his convenience. He did receive a single dose of Zosyn from the ED. (2) DKA (diabetic ketoacidoses): Received 3 L normal saline and 10 units of regular insulin IV in the ED. Give another 1 L normal saline IV now. Maintenance fluids of normal saline with potassium chloride 20 mEq at night 25 mils per hour. Check BMP every [address] Accu-Cheks before meals and at bedtime with NovoLog coverage per scale Patient meets minimal criteria for DKA, with an anion gap of 17 and mildly elevated lactic acid of 4.3. Lactic acidosis likely in part run whole day associated to underlying infection, and being on Metformin while having acute kidney injury (3) Acute kidney injury: Secondary to prerenal state. Avoid nephrotoxins such as lisinopril and meloxicam for now. (4) Ankylosing spondylitis: Hold meloxicam (5) Ulcerative colitis: (6) Generalized anxiety disorder: Continue venlafaxine ER 225 mg daily (7) Diabetes mellitus, type II: Hold glipizide and Metformin. (8) Fatty liver: Likely secondary to combination of obesity, diabetes mellitus and presumptive hypercholesterolemia. Follow serial liver enzymes. (9) Hypertension: Hold lisinopril due to acute kidney injury (10) Obstructive sleep apnea: Does not report being on any sleep support at this time Admission and Anticipated Discharge Date Admission Date: January 03, 2020 Results & Data Results & Data ([facility]) Vital Signs (Past 12 Hours) Vital Signs Temp Pulse Pulse Resp BP BP Pulse Ox 01/03/20 07:33 97.9 F 95 H 18 136/80 93 01/03/20 03:59 99.3 F 103 H 20 163/91 H 93 01/03/20 03:41 106 H 18 105/60 93 01/03/20 02:30 104 H 20 120/66 95 01/03/20 02:00 100 H 22 103/56 L 95 01/03/20 01:30 105 H 22 118/70 96 01/03/20 01:00 98/71 L 94 01/03/20 00:30 113 H 35 H 108/73 95 01/03/20 00:00 105 H 33 H 104/67 94 01/02/20 23:58 105 H 30 H 106/68 94 01/02/20 23:30 96 H 27 H 95 01/02/20 23:00 110 H 20 96 01/02/20 22:01 98.1 F 106 H 20 100/75 96 PG Care Time/CCT Total # of Minutes Spent Total Time Spent with Patient: Total time spent is greater than 50% in coordination of care (as documented) at patient's floor/unit and/or counseling patient: Coding Diagnoses Enteritis K52.9 DKA (diabetic ketoacidoses) E11.10 Diabetes mellitus complication detail: without coma Diabetes mellitus type: type 2 Acute kidney injury N17.9 Ankylosing spondylitis M45.9 Ulcerative colitis K51.90 Generalized anxiety disorder F41.1 Diabetes mellitus, type II E11.9 Fatty liver K76.0 Hypertension I10 Obstructive sleep apnea G47.33 (1) DKA (diabetic ketoacidoses) Diabetes mellitus complication detail: without coma Diabetes mellitus type: type 2 Qualified Code(s): E11.10 - Type 2 diabetes mellitus with ketoacidosis without coma
[2020-01-03] MEDS: INSULIN ASPART 100 UNITS/ML 3 ML PEN SC SCH ×2 (08:02→12:12)
--- NOTE | 2020-01-03 08:10 | XRay Report ---
XR chest 1V portable CLINICAL HISTORY: Weakness COMPARISON STUDY: May 21, 2015 FINDINGS: The heart is the upper limits of normal in size. There is no failure. There is no focal pul monary consolidation. There are no pleural effusions.[ IMPRESSION: No active disease in the chest. ACT 112: Negative or not required by law. Electronically signed by: Donavon Christopher M.D. 01/03/2020 8:08 AM
[2020-01-03 08:44] LABS: BUN Creatinine Ratio 14.8 (10-20); Calcium 9.5 mg/dl (8.5-10.1); Creatinine Clr Calc Pharmacy 126.7 ml/min; Est GFR (African American) 100.5; Est GFR (Non-African American) 86.7; Potassium 4.4 mmol/L (3.5-5.1)
[2020-01-03] MEDS ORDERED: VENLAFAXINE HCL XR 75 MG CAPXR PO SCH (09:00)
--- NOTE | 2020-01-03 09:38 | Electrocardiogram Report ---
Test Reason : Blood Pressure : / mmHG Vent. Rate : 113 BPM Atrial Rate : 113 BPM P-R Int : 148 ms QRS Dur : 088 ms QT Int : 338 ms P-R-T Axes : 049 057 048 degrees QTc Int : 463 ms Sinus tachycardia Otherwise normal ECG When compared with ECG of 21-MAY-2015 21:11, No significant change was found Confirmed by Ayden Gama ([id number]) on 01/03/2020 9:38:30 AM Referred By: REFERRED SELF Confirmed By:Ayden Gama
[2020-01-03] MEDS ORDERED: glipiZIDE 5 MG TAB PO SCH (10:30)
[2020-01-03 12:42] LABS: BUN Creatinine Ratio 14.3 (10-20); Calcium 9.1 mg/dl (8.5-10.1); Creatinine Clr Calc Pharmacy 130.5 ml/min; Est GFR (African American) 104.1; Est GFR (Non-African American) 89.9; Potassium 3.9 mmol/L (3.5-5.1)
--- NOTE | 2020-01-03 13:27 | Discharge Summary ---
Date of Service January 03, 2020 Admission HPI Per Admitting Provider The patient is a 44 yo male with a PMH including ankylosing spondylitis, ulcerative colitis, generalized anxiety disorder, DM type II, HTN and ROSALIE. The patient developed acute onset of nausea, vomiting and abdominal pain earlier in the day today, that persisted into the evening, and thus presented to the ED for assessment. He does report eating out at a local eatery earlier in the day, but does not report anything abnormal about the food taste. He does report having similar instances in the past, but not anything to this extent as today. He does report feeling somewhat improved after receiving 3 L of normal saline in the ED, but still feels uneasiness in the stomach. Work-up in the emergency department included a CT scan of abdomen and pelvis, which was consistent with enteritis and also showed fatty liver. Laboratories included the following: WBC 32.27, hemoglobin 18.3, platelets 462, creatinine 1.76 with baseline 0.84, glucose 348, lactic acid 4.3, AST 64, ALT 138, and a hemolyzed beta hydroxyb utyric acid. Principal Diagnosis diabetic ketoacidosis enteritis Discharge Exam The patient appeared well Vital signs as documented. Lungs are clear to auscultation and appear unlabored Cardiac exam, Rhythm is regular.. No murmurs, rubs or gallops. Abdominal exam reveals normal bowel sounds, soft non tender, no masses Extremities are nonedematous and both pedal pulses are normal. Neurologic exam is alert and oriented, no focal loss of strength or sensation Skin is without bruises or rashes Psychologically is without concerns for anxiety or depression. Discharge Data Allergies Allergy/AdvReac Type Severity Reaction Status Date / Time No Known Allergies Allergy Verified 01/02/20 22:33 Consultations 01/03/20 00:27 ED Decision to Admit Stat Ordered Studies 01/02/20 22:27 CT abd pelvis IV con only Urgent Hospital Course (1) Enteritis: Suspect patient may have some underlying diabetic gastroparesis. It is possible that he may have an element of toxin induced food poisoning associated with food intake from a local eatery. Or it may just be a food sensitivity. Patient feels he is returned to his baseline status almost 100% he did eat lunch and was started back on his glipizide He did receive a single dose of Zosyn from the ED. (2) DKA (diabetic ketoacidoses): Received 3 L normal saline and 10 units of regular insulin IV in the ED. Patient has complete resolution of his acidosis anion gap is closed is able eat well he will go home on his glipizide holding metformin (3) Acute kidney injury: Resolved (4) Ankylosing spondylitis: Hold meloxicam (5) Ulcerative colitis: (6) Generalized anxiety disorder: Continue venlafaxine ER 225 mg daily (7) Diabetes mellitus, type II: Hold glipizide due to his acidosis will recommend holding metformin at this time (8) Fatty liver: Likely secondary to combination of obesity, diabetes mellitus and presumptive hypercholesterolemia. Patient encouraged to go on a lifestyle changing regiment with the help of his family physician (9) Hypertension: Zoom outpatient lisinopril (10) Obstructive sleep apnea: Does not report being on any sleep support at this time Total Time Total Time Spent Total Time Spent (In Minutes): It required greater than 30 minutes to prepare this patient for discharge Discharge Plan Discharge Items Patient Disposition: Home - Self-Care Reason For Visit: DKA, ENTERITIS Discharge Diagnosis: diabetic ketoacidosis entertitis Condition on Discharge: Fair Activity: Resume your previous activity Non-emergency contact: Primary Care Provider Call non-emergency contact if: you have any medication questions and your symptoms worsen Follow-up/Referrals: Portia Mosley MD [Primary Care Provider] - Diet: Carb Consistent or DM2 Addtl Attending Provider Instructions: Please hold your metformin at the time of discharge. Take your glipizide as you previously were. If you find you are having decreased appetite please take one half of your glipizide tablet instead of the full dose. Please stay hydrated. Speak your primary care physician about possible nutrition consultation. Please begin low level exercise program when she feel better Pending Studies at Discharge: No Stand-Alone Forms: My [employer], Smoking Cessation Medications and DC Order Prescriptions: Continued (DME) CPAP Supplies Misc See Dose Instructions .ROUTE .MEDSUPPLY Qty: 1 RF: 0 (DME) Accu-Chek Irma Plus test strp strip See Dose Instructions .ROUTE .MEDSUPPLY Qty: 100 RF: 0 (DME) blood-glucose meter [Accu-Chek Irma Plus Meter] misc See Dose Instructions .ROUTE .MEDSUPPLY Qty: 1 RF: 0 (DME) lancets [Accu-Chek Fastclix Lancet Drum] misc See Dose Instructions .ROUTE .MEDSUPPLY Qty: 100 RF: 0 venlafaxine 75 mg capsule,extended release 24hr 225 mg PO DAILY Qty: 90 RF: 0 glipizide 5 mg tablet 5 mg PO DAILY Qty: 30 RF: 5 lisinopril 10 mg tablet 10 mg PO DAILY Qty: 30 RF: 5 meloxicam 7.5 mg tablet 7.5 mg PO DAILY PRN (Reason: pain) Qty: 90 RF: 1 Discontinued metformin 1,000 mg tablet 1,000 mg PO BID Qty: 180 RF: 1 Discharge Orders: Discharge Order (Routine); Ordered 01/03/20 Ordered By: Galo Sarmiento Admission Data Admit Date/Time: 01/03/20 02:44 Attending Provider: Galo Sarmiento Admit Provider: Jacob Lopez Primary Care Provider: Portia Mosley Other Providers: Jacob Lopez Coding Level of Care Code D/C Day Management >30 mins Diagnoses Enteritis K52.9 DKA (diabetic ketoacidoses) E11.10 Diabetes mellitus complication detail: without coma Diabetes mellitus type: type 2 Acute kidney injury N17.9 Ankylosing spondylitis M45.9 Ulcerative colitis K51.90 Generalized anxiety disorder F41.1 Diabetes mellitus, type II E11.9 Fatty liver K76.0 Hypertension I10 Obstructive sleep apnea G47.33
== END 2020-01-03 13:51 | disposition home or self-care (01) ==
LOC: ED 21:52 → 2E 01-03 02:44 → SUATTDRO 01-03 02:44 → INTOOBSV 01-03 02:44 → 2E 01-03 03:41